=== PATIENT | female | born 1940 | race Two or more races ===

== ENCOUNTER 2023-02-18 19:18 | Emergency (ER) | payer MEDICARE, BC ==
[~2023-02-18] VITALS: Ht 167.6 cm; Wt 65.8 kg
--- NOTE | 2023-02-18 19:26 | NUR ---
[id number] FROM HOME C/O MORE CONFUSED THAN USUAL SINCE THIS MORNING. HX DEMENTIA
--- NOTE | 2023-02-18 19:42 | NUR ---
BLOOD COLLECTED SENT TO LAB
--- NOTE | 2023-02-18 19:48 | NUR ---
PT TAKEN TO CT
[2023-02-18 19:53] LABS: BASOPHILS % (AUTO) 0.3 % (0.0-2.0); EOSINOPHILS % (AUTO) 10.7 % (0.0-6.0); HEMATOCRIT 34 % (33-45); HEMOGLOBIN 10.8 g/dL (11.5-14.8); LYMPHOCYTES # (AUTO) 1.3 K/uL (0.8-4.8); LYMPHOCYTES % (AUTO) 14.3 % (20.0-44.0); MEAN CORPUSCULAR HGB CONC 32 g/dl (31.0-36.0); MEAN CORPUSCULAR VOLUME 93 fL (82-100); MONOCYTES # (AUTO) 0.2 K/uL (0.1-1.30); MONOCYTES % (AUTO) 2.7 % (2.0-12.0); NEUTROPHILS # (AUTO) 6.5 K/uL (1.8-8.9); PLATELET COUNT (AUTO) 259 K/uL (150-450); RED BLOOD CELL COUNT(AUTO) 3.68 MIL/uL (4.0-5.2)
[2023-02-18 19:59] LABS: CALCIUM, SERUM 9.7 mg/dL (8.5-10.1); CARBON DIOXIDE 31 mmol/L (21-32); CHLORIDE 98 mmol/L (98-107); CREATININE 0.6 mg/dL (0.6-1.3); GLUCOSE 119 mg/dL (74-106); POTASSIUM 3.4 mmol/L (3.5-5.1); SODIUM SERUM 135 mmol/L (136-145); UREA NITROGEN, BLOOD 16 mg/dL (7-18)
[2023-02-18 20:00] LABS: SERUM AMMONIA 4 umol/L (11-32)
--- NOTE | 2023-02-18 20:00 | NUR ---
CALLED [facility] AND MARKED THE HEAD CT CRITICAL FOR STAT READ
--- NOTE | 2023-02-18 20:03 | NUR ---
SENT IMAGES FOR HED CT TO DR SALEH
[2023-02-18 20:05] LABS: ALANINE AMINOTRANSFERASE 34 U/L (12-78); ALBUMIN 3.6 g/dL (3.4-5.0); ALKALINE PHOSPHATASE 61 U/L (46-116); ASPARTATE AMINOTRANSFERASE 26 U/L (15-37); BILIRUBIN,DIRECT 0.1 mg/dL (0.0-0.2); BILIRUBIN,TOTAL 0.4 mg/dL (0.2-1.0); TOTAL PROTEIN, SERUM 6.4 g/dL (6.4-8.2)
[2023-02-18 20:06] LABS: ALCOHOL, BLOOD < 10 mg/dL (0-0)
--- NOTE | 2023-02-18 20:06 | NUR ---
PT RETURNED FROM CT
--- NOTE | 2023-02-18 20:10 | NUR ---
DR FLETCHER ON THE PHONE WITH DR SALEH, NEUROSURGEON
--- NOTE | 2023-02-18 20:10 | NUR ---
COVID SWAB SENT
--- NOTE | 2023-02-18 20:10 | NUR ---
Teresa castañeda in [facility] - 02/18/23 at [address] LAW CABRERA ON PHONE CALL WITH DR THERESE PROCTOR
[2023-02-18 20:13] LABS: THYROID STIMULATING HORMONE 1.581 uIU/mL (0.358-3.74)
--- NOTE | 2023-02-18 20:13 | NUR ---
URINE COLLECTED SENT TO LAB
[2023-02-18 20:42] VITALS: BP 155/82
--- NOTE | 2023-02-18 20:53 | NUR ---
22G STARTED ON R WRIST
--- NOTE | 2023-02-18 20:53 | NUR ---
[facility] RE[facility] # [phone] ICU BED 4522-[address] HER Addendum: 02/18/23 at 2101 by JAY PT GOT ACCEPTED BY DR ABDIFATAH HAM AT [facility]
--- NOTE | 2023-02-18 21:03 | NUR ---
REPORT GIVEN TO TRACY FLORENCE, [facility]
[2023-02-18 21:25] LABS: BILIRUBIN,URINE NEGATIVE (NEGATIVE); COLOR,URINE YELLOW (YELLOW); LEUKOCYTE ESTERASE ,URINE 1+ (NEGATIVE); NITRITE, URINE NEGATIVE (NEGATIVE); PH,URINE 7.5 (5.0-8.0); PROTEIN,URINE NEGATIVE (NEGATIVE); UGLUCOSE NEGATIVE (NEGATIVE); UROBILINOGEN,URINE 0.2 EU/dL (0.2)
--- NOTE | 2023-02-18 21:25 | NUR ---
[facility] #[id number] AT BEDSIDE TO TRASPORT PT TO [facility]
[2023-02-18 21:32] LABS: BACTERIA,URINE 2+ /HPF (None Seen); RBC,URINE 0-2 /HPF (0-2)
[2023-02-18 22:21] LABS: LYMPHOCYTES % (MANUAL) 19 % (16-48); MONOCYTES % (MANUAL) 9 % (0-11.0); NEUTROPHILS % (MANUAL) 72 (42-76)
== END 2023-02-18 21:34 | disposition short-term general hospital (02) ==
LOC: ER 19:20
DX: I61.9 Nontraumatic intracerebral hemorrhage, unspecified (principal); R41.82 Altered mental status, unspecified; I10 Essential (primary) hypertension; Z88.8 Allergy status to other drugs, medicaments and biological substances; Z20.822 Contact with and (suspected) exposure to COVID-19
CPT/HCPCS: 36415; 70450-TC; 71045-TC; 80048-TC; 80076-TC; 81001; 82140-TC; 82962-TC; 84443-TC; 84484-TC; 85025-TC; 85730-TC; 87086-TC; C9803; G0480